=== PATIENT | male | born 1995 | race Caucasian/White ===

== ENCOUNTER 2024-10-01 22:15 | Day surgery (SDC) | payer OTHER, SELFPAY ==
[2024-10-01 15:18] VITALS: BP 125/86
[2024-10-01 15:42] LABS: Hematocrit 47.4 % (39.0-52.0); Hemoglobin 16.9 g/dL (13.0-18.0); Mean Corp Hgb Conc. 35.7 g/dL (33.0-37.0); Mean Corpuscular Volume 85.9 fL (80.0-94.0); Nucleated Red Blood Cells % 0 % (-); Platelet Count 254 10^3/uL (130-400); Red Cell Dist. Width 12.0 % (11.5-14.5)
[2024-10-01 15:50] LABS: Urine Character Clear (Clear)
[2024-10-01 15:59] LABS: ALT (SGPT) 43 U/L (0-50); AST (SGOT) 29 U/L (17-59); Albumin 5.3 g/dl (3.5-5.0); Alkaline Phosphatase 66 U/L (38-126); Blood Urea Nitrogen 14 mg/dl (9-20); Calcium 9.8 mg/dl (8.4-10.2); Carbon Dioxide 29 mmol/L (22-30); Chloride 104 mmol/L (98-107); Glucose 118 mg/dl (70-99); Lipase 73 U/L (23-300); Potassium 4.7 mmol/L (3.5-5.1); Sodium 141 mmol/L (135-145); Total Protein 8.4 g/dl (6.3-8.2); eGFR > 60.00
[2024-10-01 16:20] LABS: Urine Red Blood Cell 0-2 /HPF (0-2)
[2024-10-01 16:39] VITALS: BMI 26.4
--- NOTE | 2024-10-01 16:44 | ED.GENMED ---
History of Present Illness
<Orlando Collado MD, Resident - Last Filed: 10/01/24 20:32>
General
Chief Complaint: Abdominal Pain
Source: patient
Exam Limitations: none
Time Seen by Provider: 10/01/24 16:02
Nursing documentation reviewed up to this point in time: agreed with
History of Present Illness
History of Present Illness:
This is a 29-year-old male with no known past medical history, not on any prescription medicine condition, presenting to the emergency department with complaints of abdominal pain which started today when he woke up. He rates the pain as 8/10.
Initially the pain was more of a band across the abdomen however there is more pain in the right lower quadrant. He also admits to have 2�3 episodes of vomiting which was mostly food content which he ate the night before. There was no blood in it.
He denies any additional vomiting however still has some nausea. He denies any fevers or chills, chest pain, trouble breathing, weakness, headache, vision changes or any other urinary symptoms.
Denies any recent abdominal surgeries. Denies any recent sick contacts or recent travel.
Past History
<Orlando Collado MD, Resident - Last Filed: 10/01/24 20:32>
Past History
ED Past Medical History: None
ED Past Surgical History: Other (Abdominal unclear)
Patient has exhibited threatening behavior?: No
Social History
Tobacco: Non-smoker
Alcohol: None
Drug: None
Living: with family
Family History
Family History: Other (Noncontributory)
Review of Systems
<Orlando Collado MD, Resident - Last Filed: 10/01/24 20:32>
Review of Systems
Allergies reviewed?: Yes
Constitutional: Denies fever or chills
EENT: Denies sore throat
Respiratory: Denies cough or trouble breathing
Cardiac: Denies chest pain
ABD/GI: Reports abdominal pain, nausea and vomiting; Denies diarrhea
: Denies dysuria or frequency
Musculoskeletal: Denies joint pain or joint swelling
Neurological: Denies dizzy or headache
Endocrine: Denies polyuria
Hematologic/Lymphatic: Denies bleeding
Psychiatric: Reports no symptoms
Phy Exam
<Orlando Collado MD, Resident - Last Filed: 10/01/24 20:32>
General Physical Exam
General Presentation: well appearing and mild distress
General age: appears stated age
General Skin: warm
General Habitus: normal
General Mental: alert
General Hydration: appears well hydrated
Cardiovascular Exam
Cardiovascular Exam: regular rate/rhythm and no murmur
Pulmonary Exam
Pulmonary Exam: lungs clear, no respiratory distress and no crackles
Gastrointestinal Exam
Gastrointestinal Exam: non distended, no cva tenderness and tender (RLQ)
Abdominal Scars: right lower quadrant
Neurological Exam
Neurological Exam: alert and oriented x3
Musculoskeletal Exam
Musculoskeletal Exam: full ROM
Course
<Orlando Collado MD, Resident - Last Filed: 10/01/24 20:32>
Orders/Labs/Results
Orders:
Orders
10/01/24 Dinner
NPO
Allow oral meds: No
Allow clear liquids: No
10/01/24 15:31
Complete Blood Count/With Diff Urgent
Comprehensive Metabolic Panel Urgent
Lipase Urgent
10/01/24 15:32
Urinalysis Reflex To Culture Urgent
Date Specimen was Collected: 10/01/24
Time Specimen was Collected: 15:23
Urine Microscopic Reflex Cult Urgent
10/01/24 16:40
CT Abd/Pel (IV only)-DH only Urgent
Comment:
Reason For Exam: Abdominal pain+nausea/vomiting
10/01/24 16:50
Morphine Sulfate 4 mg IV NOW STA
10/01/24 17:56
0.9% Sodium Chloride 1000 ml [Nss] 1,000 ml IV BOLUS
Ketorolac [Toradol] 15 mg IV NOW STA
10/01/24 20:15
0.9% Sodium Chloride 1000 ml [Nss] 1,000 ml IV 100 mls/hr
10/01/24 22:00
Piperacillin/Tazo 3.375 Gram [Zosyn] 3.375 gram in 50 ml IV Q8H
Abnormal Lab Results
10/01/24 10/01/24
15:31 15:32
WBC 15.4 H 10^3/uL
(4.8-10.8)
MPV 10.6 H fL
(7.4-10.4)
Absolute Neuts (auto) 13.2 H 10^3/uL
(1.4-6.5)
Absolute Lymphs (auto) 0.9 L 10^3/uL
(1.2-3.4)
Absolute Monos (auto) 1.2 H 10^3/uL
(0.1-0.6)
Neutrophils % 85.5 H %
(42.2-75.2)
Lymphocytes % 5.7 L %
(20.5-51.1)
Glucose 118 H mg/dl
(70-99)
Total Protein 8.4 H g/dl
(6.3-8.2)
Albumin 5.3 H g/dl
(3.5-5.0)
Urine Bacteria (Reflex) Few A
(Negative)
Urine Albumin (Reflex) 2+ A
(Neg - Trace)
10/01/24 15:31
10/01/24 15:31
Vital Signs
Initial and Last Documented VS:
Initial Vital Signs
Temp Pulse Resp BP Pulse Ox
97.7 F 101 18 125/86 96
10/01/24 15:18 10/01/24 15:18 10/01/24 15:18 10/01/24 15:18 10/01/24 15:18
Last Documented Vital Signs
Temp Pulse Resp BP Pulse Ox
97.7 F 89 18 123/77 98
10/01/24 15:18 10/01/24 18:00 10/01/24 15:18 10/01/24 18:00 10/01/24 18:00
<Charlotte Bond MD - Last Filed: 10/01/24 19:57>
Orders/Labs/Results
Orders:
Orders
10/01/24 Dinner
NPO
Allow oral meds: No
Allow clear liquids: No
10/01/24 15:31
Complete Blood Count/With Diff Urgent
Comprehensive Metabolic Panel Urgent
Lipase Urgent
10/01/24 15:32
Urinalysis Reflex To Culture Urgent
Date Specimen was Collected: 10/01/24
Time Specimen was Collected: 15:23
Urine Microscopic Reflex Cult Urgent
10/01/24 16:40
CT Abd/Pel (IV only)-DH only Urgent
Comment:
Reason For Exam: Abdominal pain+nausea/vomiting
10/01/24 16:50
Morphine Sulfate 4 mg IV NOW STA
10/01/24 17:56
0.9% Sodium Chloride 1000 ml [Nss] 1,000 ml IV BOLUS
Ketorolac [Toradol] 15 mg IV NOW STA
10/01/24 20:15
0.9% Sodium Chloride 1000 ml [Nss] 1,000 ml IV 100 mls/hr
10/01/24 22:00
Piperacillin/Tazo 3.375 Gram [Zosyn] 3.375 gram in 50 ml IV Q8H
Abnormal Lab Results
10/01/24 10/01/24
15:31 15:32
WBC 15.4 H 10^3/uL
(4.8-10.8)
MPV 10.6 H fL
(7.4-10.4)
Absolute Neuts (auto) 13.2 H 10^3/uL
(1.4-6.5)
Absolute Lymphs (auto) 0.9 L 10^3/uL
(1.2-3.4)
Absolute Monos (auto) 1.2 H 10^3/uL
(0.1-0.6)
Neutrophils % 85.5 H %
(42.2-75.2)
Lymphocytes % 5.7 L %
(20.5-51.1)
Glucose 118 H mg/dl
(70-99)
Total Protein 8.4 H g/dl
(6.3-8.2)
Albumin 5.3 H g/dl
(3.5-5.0)
Urine Bacteria (Reflex) Few A
(Negative)
Urine Albumin (Reflex) 2+ A
(Neg - Trace)
10/01/24 15:31
10/01/24 15:31
Vital Signs
Initial and Last Documented VS:
Initial Vital Signs
Temp Pulse Resp BP Pulse Ox
97.7 F 101 18 125/86 96
10/01/24 15:18 10/01/24 15:18 10/01/24 15:18 10/01/24 15:18 10/01/24 15:18
Last Documented Vital Signs
Temp Pulse Resp BP Pulse Ox
97.7 F 89 18 123/77 98
10/01/24 15:18 10/01/24 18:00 10/01/24 15:18 10/01/24 18:00 10/01/24 18:00
<Orlando Collado MD, Resident - Last Filed: 10/01/24 20:32>
MDM/Problems Addressed
Differential Diagnosis Includes:
Enteritis vs appendicitis vs pancreatitis vs biliary colic vs renal colic vs diverticulitis
MDM/Problems Addressed:
Check CBC, CMP, lipase, UA
Update CBC with WBC of 15.4, CMP with mild elevation of blood glucose, his urine negative.
Given patient white blood cell count and tachycardia will obtain CT abdomen with IV contrast for further evaluation.
Will give morphine 4 mg IV for ongoing pain
update:
Patient continues to have pain after morphine. Will give IV Toradol 15 mg and 1 L normal saline bolus.
CT with Acute appendicitis. No CT evidence for perforation or periappendiceal abscess.
General surgery notified. Will admit the patient for further treatment.
IV Zosyn, IV normal saline, n.p.o.
<Orlando Collado MD, Resident - Last Filed: 10/01/24 20:32>
*Pulse Oximetry
SaO2: 96
Patient hypoxic: no
*Critical Care Note
Total Time (30-74mins, 75-104mins- exclusive of procedures): Not Applicable
ED Attending Note
<Orlando Collado MD, Resident - Last Filed: 10/01/24 20:32>
-
Portions of this chart may have been created with voice recognition software.� Occasional wrong word or��sound alike� substitutions may have occurred due to the inherent limitations of voice recognition software.
<Charlotte Bond MD - Last Filed: 10/01/24 19:57>
ED Attending Note
Patient seen and examined by attending physician: Yes
I performed a history and physical exam of patient and discussed management with resident, I reviewed resident's note and agree with documented findings and plan of care.: Yes
ED Attending Note:
29-year-old male presents emergency department with complaints of abdominal pain that started this morning getting progressively worse associated with nausea but no vomiting. He denies fever, chills, chest pain, shortness of breath, urinary
symptoms, back or flank pain. Pain is persistent. Pain is located across his upper abdomen and especially in the right mid to lower quadrant. Of note, patient has a surgical scar in that right lower quadrant area he is unclear exactly what the
procedure was but states he had a performed when he was 7 months old.On exam, patient appears uncomfortable but generally nontoxic. Abdomen soft with voluntary guarding particular with palpation in the right mid to lower quadrant, no rebound. No
rigidity. Through language line medical interpreter history obtained. Assured patient we will manage his pain while performing workup, CAT scan ordered, suspicion for appendicitis high.
Discharge Plan
Departure
Patient Disposition: Admit
Date of Disposition: 10/01/24
Time of Disposition: 19:57
Presentation/result/management discussed w/ accepting MD/DO: General surgery
Discharge Problem:
Acute appendicitis
Prescriptions:
No Action
No Current Medications
0
Referrals:
PRIVATE,PHYSICIAN [Family Provider, Internal Medicine]
Interventions
Interventions:
*Risk Screen - Suicide Last Done: 10/01/24 15:21
*General Assessment Last Done: 10/01/24 15:21
*Neglect/Abuse Screening Last Done: 10/01/24 15:21
*ED COVID-19 Vaccine History Last Done: 10/01/24 15:21
DP-Trbunk-Cwyjknsqml Assessment Last Done: 10/01/24 18:00
Discharge Date and Time
Print Language: Moldovan
[2024-10-01] MEDS: MORPHINE SULFATE 4 MG IV ×2 (17:04→22:25)
[2024-10-01 17:07] VITALS: BP 124/76
[2024-10-01] MEDS: TORADOL 15 MG IV (17:59)
[2024-10-01 18:00] VITALS: BP 123/77
[2024-10-01] MEDS: NSS 1000 IV ×2 (18:03→21:02)
[2024-10-01 19:00] VITALS: BP 119/75
--- NOTE | 2024-10-01 21:23 | HP.FOC2 ---
Addendum entered and electronically signed by Jewel Cheatham MD 10/02/24 11:02:
I saw and examined the patient.
The SECTION 8 PROPERTY MANAGER's note was reviewed and I agree with the note.
Comment:
History, vitals, labs, imaging reviewed. Patient seen and examined.
29 yo M with acute (non-perforated) appendicitis based on symptoms, labs, and imaging. Recommended trip to OR for laparoscopic appendectomy. Operation discussed including risks and benefits. Risks discussed include but not limited to bleeding,
infection, injury to nearby structures, stapleline leak, and anesthetic risks. Patient agrees to proceed. Of note, consent done through the phone jboss developer. Anticipate discharge postoperatively either today or tomorrow.
Original Note:
Focused History & Physical
Chief Complaint
HPI:
Chief Complaint: abdominal pain
HPI / Indication for Planned Procedure:
29YOM no significant PMH presents to ED with progressively worsening abdominal pain�associated with nausea and vomiting (last this AM) since this morning. Pain is localized to the right lower abdomen upon palpation, no rebound tenderness. CT
ab/pelvis shows 'Acute appendicitis. No CT evidence for perforation or periappendiceal abscess.'
Patient reports not taking his temperature at home but currently feels feverish and cold. Patient denies chest pain, sob, urinary symptoms. Patient's brother at the bedside. Questions answered and POC reviewed.��
Relevant Past Medical History: Negative
Relevant Social History: Negative
Relevant Family History: Negative
Relevant Past Surgical History: Positive for (unknown abdominal surgery when 7month old)
Review of Systems
Review of Pertinent Systems: All Systems Negative Except for the Following Positives (abd/GI - reports right lower quadrant abdominal pain associated with nausea and vomiting. Denies diarrhea. )
Medication
See Medication form for detailed medications: Yes
Medication List (including Herbals & OTC):
No Meds [No Current Medications] 10/01/24
Medications Reviewed: Yes
Allergies and Reactions
Patient has Allergies: No
Noted Allergies and Reactions:
Allergy/AdvReac Type Severity Reaction Status Date / Time
No Known Allergies Allergy Verified 05/11/22 22:10
Pertinent Physical Exam
All Other Systems: Negative
Head/Neck: Normal
Lungs: Normal
Heart: Normal
Abdomen: Other (right lower quadrant tender to palpation. Hypoactive bowel sound)
Extremities: Normal
Neurological: Normal
Diagnosis / Assessment
acute appendicitis
10/01/2024 CT abdomen/pelvis
Acute appendicitis. No CT evidence for perforation or periappendiceal abscess.
Plan / Procedure
admit to Dr. Chaparrita rahman
#acute appendicitis
- Laparoscopic appendectomy on 10/02
- Abx - Zosyn q8hr
- NPO
- pain control - Morphine and Toradol
- IVF NS
DVT prophylaxis
- SCD
Full code
[2024-10-01] MEDS: ZOSYN 50 IV (22:25)
[2024-10-02] VITALS (11 sets, daily range): BP systolic 102–127; BP diastolic 63–85; BMI 26.1
--- NOTE | 2024-10-02 03:00 | PTCARENOTE ---
Patient arrived from ED to [facility], accompanied by brother. Patient AAOx3, very pleasant, c/o increasing severe URQ pain. No N/V at this time though. IVF infusing per order. Pt and family oriented to room and plan, all questions answered.
[2024-10-02] MEDS: MORPHINE SULFATE 4 MG IV (03:12)
[2024-10-02] MEDS: ZOSYN 50 IV ×3 (03:23→21:32)
[2024-10-02] MEDS: NSS 1000 IV ×2 (09:00→22:31)
--- NOTE | 2024-10-02 15:48 | W.IMMPOSTOP ---
Surgical Immed Post Op Note
-
Primary Surgeon: Jud Cheatham MD
Assisting Surgeon: BRITTANY Kwok
Pre-op Diagnosis: acute appendicitis
Post-op Diagnosis: same
Procedure Performed: laparoscopic appendectomy
Anesthesia Type: general plus local
Specimen / Cultures: appendix
Estimated Blood Loss: 20 cc
Complications: no immediate
Operative Findings: swollen inflamed nonperforated appendix
Will send back to med surg.
Anticipate discharge tomorrow am.
[2024-10-02] MEDS: SUBLIMAZE 25 MCG IV (15:57)
[2024-10-02] MEDS: ZOSYN IV (16:14)
--- NOTE | 2024-10-02 17:31 | PTCARENOTE ---
Received patient from PACU via bed around 1645 in stable condition. 3 sites to abdomen with surgical glue GRACIELA. Patient denies pain. Call forte in reach.
[2024-10-02] MEDS: TORADOL 10 MG IV (21:36)
[2024-10-03 03:00] VITALS: BP 101/64
[2024-10-03] MEDS: ZOSYN 50 IV (04:12)
[2024-10-03] MEDS: TORADOL 10 MG IV (04:18)
[2024-10-03 07:00] VITALS: BP 110/66
[2024-10-03] MEDS: ROXICODONE 5 MG PO (09:16)
--- NOTE | 2024-10-03 09:57 | W.PN.GS2 ---
Addendum entered and electronically signed by Jewel Cheatham MD 10/03/24 12:47:
I saw and examined the patient.
The CANOE INSPECTOR FINAL's note was reviewed and I agree with the note.
Comment:
Patient doing well this am.
Vitals normal.
Incisions look good.
Discharge.
Original Note:
Today's Communication / Plan
-
Dispo planning
Assessment / Plan
-
29 yo male presenting with acute appendicitis now POD #1 lap appi
AFVSS
Tolerating diet
Following expected post operative course
Plan:
Analgesics prn
Regular diet as tolerated
OOB/Ambulate
Dispo planning
Subjective Data
-
Date of Service: October 03, 2024
Pt seen and examined at bedside with Dr Cheatham. Denies n/v. Tolerating diet. Some incisional pain this am.
Objective Data
-
Intake and Output
10/02/24 10/03/24 10/04/24
06:59 06:59 06:59
Intake Total 100 / 100 480 / 480
Output Total 1325 / 1325
Balance -1225 / -1225 480 / 480
Intake:
Oral fluids 480 / 480
IV piggybacks 100 / 100
Output:
Urine, Rose 500 / 500
Urine, Voided 825 / 825
Other:
Number of approximated LARGE 3
amounts of urine
Vital Signs
Temp Pulse Resp BP Pulse Ox
97.9 F 69 14 110/66 97
10/03/24 07:00 10/03/24 07:00 10/03/24 07:00 10/03/24 07:00 10/03/24 08:30
Lab Results
10/01/24 15:31
10/01/24 15:
Calcium 9.8 mg/dl (8.4-10.2) 10/01/24 15:
Total Bilirubin 1.0 mg/dl (0.2-1.3) 10/01/24 15:
AST 29 U/L (17-59) 10/01/24 15:
ALT 43 U/L (0-50) 10/01/24:
Alkaline Phosphatase 66 U/L (38-126) 10/01/24:
Total Protein 8.4 g/dl (6.3-8.2) H 10/01/24:
Albumin 5.3 g/dl (3.5-5.0) H 10/01/24 15:
Physical Exam
-
NAD
ABD soft, expected incisional tenderness, ND
Incisions with intact glue, no erythema
Patient has a rose catheter: No
Patient has a central line: No
--- NOTE | 2024-10-03 10:00 | W.DS.TRANS ---
DC Summary - Clinical Data Management Director
-
Discharge Instructions:
Discharge Diagnosis/Procedures Acute appendicitis
Laparoscopic appendectomy
Diet Regular,As tolerated
Additional Diets Eat small meals at first as bloating is common
Activity No strenuous activity
Additional Activity Do not lift over 10lbs for the next 2-3 weeks
Driving Restrictions No driving for 1 week
Bathing Restrictions OK to Shower
Wound Care Allow the glue to flake off your incisions on
its own over the next 2-3 weeks. Avoid scrubbing
or picking it off.
Instructions:
Stand-Alone Forms:
Changes to Home Medications: No
Discharge Medications:
DC Medications w/original date entered in [facility]
acetaminophen 325 mg tablet 650 mg (2 x 325 mg) PO Q4HPRN PRN mild pain #1 tab 10/03/24
ibuprofen 200 mg tablet 400 - 600 mg (2 - 3 x 200 mg) PO Q6HPRN PRN moderate pain #1 tab 10/03/24
oxycodone 5 mg tablet 5 mg PO Q4HPRN PRN breakthrough/severe pain #8 tabs 10/03/24
Home Medication Changes
Pending Results: No
[2024-10-03 11:02] VITALS: BP 110/68
[2024-10-03 11:39] VITALS: BP 105/64
--- NOTE | 2024-10-03 11:57 | CM ---
pt admitted with appendicitis and surgery.
DC to home with family and no identified needs.
== END 2024-10-03 13:11 | disposition home or self-care (01) ==
LOC: PACU 22:15
PROVIDERS: ATTENDING PHYSICIAN Surgery; EMERGENCY PHYSICIAN Emergency Medicine
DX: K35.891 Other acute appendicitis without perforation, with gangrene (principal)
CPT/HCPCS: 44970; 74177; 80053; 81003; 81015; 83690; 85025; 88304; 96361; 96365; 96375; 99284; C1776; Q9967